=== PATIENT | male | born 2000 | race Asian ===

== ENCOUNTER 2024-05-16 06:08 | Emergency (ER) | payer OTHER ==
[~2024-05-16] VITALS: Ht 180.3 cm; Wt 93.0 kg
[2024-05-16] MEDS ORDERED: HYDROcodone 5-APAP 325 TAB PO ONE (06:25)
[2024-05-16] MEDS ORDERED: Percocet 5-3251 EACH PO (07:04)
[2024-05-16] MEDS ORDERED: NAPR500 PO (07:04)
== END 2024-05-16 08:04 | disposition home or self-care (01) ==
LOC: ER 06:08
DX: S29.011A Strain of muscle and tendon of front wall of thorax, initial encounter (principal); S86.912A Strain of unspecified muscle(s) and tendon(s) at lower leg level, left leg, initial encounter; V69.9XXA Occupant (driver) (passenger) of heavy transport vehicle injured in unspecified traffic accident, initial encounter
CPT/HCPCS: 71046; 73562-LT; 99284-25; A9270